=== PATIENT | female | born 1945 | race Caucasian/White ===

== ENCOUNTER 2018-11-03 21:59 | Inpatient (IN) | payer MEDICARE, MEDICAID ==
[~2018-11-03] VITALS: Ht 165.1 cm; Wt 64.0 kg
[2018-11-03] MEDS ORDERED: MORPHINE SULFATE 4 MG/ML CPJ (NOT FOR IM USE) IV STA (22:41)
[2018-11-03] MEDS ORDERED: ONDANSETRON HCL 4MG/2ML INJ IV STA (22:41)
[2018-11-03] MEDS ORDERED: ASPIRIN 81MG TABLET PO ONE (22:45)
[2018-11-03] MEDS: NITROGLYCERIN 0.4MG TABLET SL SL PRN ×3 (23:19→23:35)
[2018-11-03 23:21] LABS: BASOPHILS % 0.7 % (0.0-2.0); EOSINOPHILS % 0.2 % (0.0-5.0); LYMPHOCYTES % 22.9 % (20.0-50.0); MEAN CORPUSCULAR HEMOGLOBIN 28.9 pg (28.0-32.0); MEAN CORPUSCULAR VOLUME 84.4 fL (81.0-99.0); MEAN PLATELET VOLUME 7.4 fl (7.4-10.4); MONOCYTES % 10.6 % (2.0-8.0); NEUTROPHILS % 65.6 % (40.0-76.0); PLATELET 330 x1000/uL (130-400); RED CELL DISTRIBUTION WIDTH 13.5 % (11.6-14.6)
[2018-11-03 23:25] LABS: CHLORIDE 93 mEq/L (98-107)
[2018-11-03 23:28] LABS: D-DIMER < 0.19 mg/L FEU (<0.50); PROTHROMBIN TIME 10.1 sec (9.6-11.0)
[2018-11-03] MEDS ORDERED: MORPHINE SULFATE 4 MG/ML CPJ (NOT FOR IM USE) IV ONE (23:30)
[2018-11-04] VITALS (7 sets, daily range): BP systolic 107–145; BP diastolic 54–65
[2018-11-04] MEDS ORDERED: ASPI-1393 PO (02:41)
[2018-11-04] MEDS ORDERED: LIP40 MT (02:41)
[2018-11-04] MEDS ORDERED: DILT180C93 PO (02:41)
[2018-11-04 07:26] LABS: BASOPHILS % 0.4 % (0.0-2.0); HEMATOCRIT. 37.7 % (36.0-48.0); HEMOGLOBIN. 12.9 g/dL (12.0-16.0); LYMPHOCYTES % 42.3 % (20.0-50.0); MEAN CORPUSCULAR HEMOGLOBIN 29.1 pg (28.0-32.0); MEAN CORPUSCULAR VOLUME 85.4 fL (81.0-99.0); MEAN PLATELET VOLUME 7.5 fl (7.4-10.4); MONOCYTES % 12.6 % (2.0-8.0); NEUTROPHILS % 43.7 % (40.0-76.0); PLATELET 320 x1000/uL (130-400); RED BLOOD CELL COUNT 4.42 mill/uL (4.2-5.4); RED CELL DISTRIBUTION WIDTH 13.1 % (11.6-14.6)
[2018-11-04 07:58] LABS: LDL CHOLESTEROL 79 mg/dL (5-100)
[2018-11-04 08:01] LABS: HDL CHOLESTEROL 60 mg/dL (40-59)
[2018-11-04] MEDS: ENOXAPARIN 40MG/0.4ML SYR SUBCUT SCH (08:49)
[2018-11-04] MEDS: DILTIAZEM HCL 180MG CAPSULE CD 24HR PO SCH (08:50)
[2018-11-04] MEDS: ASPIRIN 81MG TABLET PO SCH (08:50)
[2018-11-04] MEDS ORDERED: ALPRAZOLAM 0.25 MG TABLET PO PRN (13:45)
[2018-11-04] MEDS: FAMOTIDINE 20MG TABLET PO SCH (16:09)
[2018-11-04] MEDS ORDERED: FAMOTIDINE 20MG TABLET PO SCH (21:00)
[2018-11-05] VITALS (7 sets, daily range): BP systolic 103–161; BP diastolic 46–89
[2018-11-05] MEDS: ACETAMINOPHEN 325MG TABLET PO PRN ×3 (06:27→22:48)
[2018-11-05] MEDS: ASPIRIN 81MG TABLET PO SCH (08:31)
[2018-11-05] MEDS: FAMOTIDINE 20MG TABLET PO SCH (08:31)
[2018-11-05] MEDS: DILTIAZEM HCL 180MG CAPSULE CD 24HR PO SCH (08:31)
[2018-11-05] MEDS: ENOXAPARIN 40MG/0.4ML SYR SUBCUT SCH (08:32)
[2018-11-05] MEDS ORDERED: REGADENOSON 0.4 MG/5 ML IV SCH (14:45)
[2018-11-05] MEDS ORDERED: ATORVASTATIN CALCIUM 20MG TABLET PO SCH (21:00)
[2018-11-06] VITALS: BP 111/51
[2018-11-06 04:18] VITALS: BP 111/50
[2018-11-06 07:34] LABS: BASOPHILS % 0.5 % (0.0-2.0); EOSINOPHILS % 1.2 % (0.0-5.0); HEMATOCRIT. 39.7 % (36.0-48.0); HEMOGLOBIN. 13.7 g/dL (12.0-16.0); LYMPHOCYTES % 40.4 % (20.0-50.0); MEAN CORPUSCULAR HEMOGLOBIN 29.1 pg (28.0-32.0); MEAN CORPUSCULAR VOLUME 84.3 fL (81.0-99.0); MEAN PLATELET VOLUME 7.5 fl (7.4-10.4); NEUTROPHILS % 46.9 % (40.0-76.0); PLATELET 348 x1000/uL (130-400); RED BLOOD CELL COUNT 4.71 mill/uL (4.2-5.4); RED CELL DISTRIBUTION WIDTH 13.4 % (11.6-14.6)
[2018-11-06 08:20] VITALS: BP 98/56
[2018-11-06] MEDS: FAMOTIDINE 20MG TABLET PO SCH (08:25)
[2018-11-06] MEDS: ASPIRIN 81MG TABLET PO SCH (08:25)
[2018-11-06] MEDS: ENOXAPARIN 40MG/0.4ML SYR SUBCUT SCH (08:25)
[2018-11-06] MEDS: DILTIAZEM HCL 180MG CAPSULE CD 24HR PO SCH (08:26)
[2018-11-06] MEDS ORDERED: REGADENOSON 0.4 MG/5 ML IV ONE (09:44)
[2018-11-06 09:47] LABS: CHLORIDE 94 mEq/L (98-107)
[2018-11-06] MEDS ORDERED: SODIUM CHLORIDE 0.9% 1,000 ML IV SCH (11:15)
[2018-11-06 12:00] VITALS: BP 143/65
[2018-11-06 13:15] LABS: T4 FREE 1.09 ng/dL (0.76-1.46)
[2018-11-06 16:00] VITALS: BP 137/64
[2018-11-06 16:47] VITALS: BP 137/64
[2018-11-06 19:10] LABS: CLARITY URINE CLEAR (CLEAR); COLOR URINE YELLOW (YELLOW); KETONES URINE NEGATIVE (NEGATIVE); LEUKOCYTE ESTERASE URINE TRACE (NEGATIVE); NITRITE URINE NEGATIVE (NEGATIVE); OCCULT BLOOD URINE TRACE (NEGATIVE); PROTEIN URINE NEGATIVE (NEGATIVE); SPECIFIC GRAVITY URINE 1.005 (1.005-1.030); UROBILINOGEN URINE 0.2 E.U./dL (0.2-1.0)
[2018-11-06 19:26] LABS: *AMPHETAMINES SCREEN URINE NEGATIVE (NEGATIVE); *BARBITURATES SCREEN URINE NEGATIVE (NEGATIVE); *BENZODIAZEPINES SCREEN URINE NEGATIVE (NEGATIVE); *COCAINE SCREEN URINE NEGATIVE (NEGATIVE); METHADONE URINE SCREEN NEGATIVE (NEGATIVE); OPIATES URINE SCREEN NEGATIVE (NEGATIVE); PHENCYCLIDINE URINE SCREEN NEGATIVE (NEGATIVE)
[2018-11-06 19:27] LABS: CANNABINOID URINE SCREEN NEGATIVE (NEGATIVE)
== END 2018-11-06 19:15 | disposition home or self-care (01) | DRG 392 ==
LOC: ER 22:00 → 5WST 11-04 00:16 → EDBEDREQTM 11-04 00:19 → EDBEDREQ 11-04 00:19 → ENRESERV 11-04 00:40
PROVIDERS: ADMIT Internal Medicine; ATTEND Internal Medicine
DX: K21.9 Gastro-esophageal reflux disease without esophagitis (principal); E87.1 Hypo-osmolality and hyponatremia; F41.9 Anxiety disorder, unspecified; E87.8 Other disorders of electrolyte and fluid balance, not elsewhere classified; I10 Essential (primary) hypertension; E03.9 Hypothyroidism, unspecified; E78.00 Pure hypercholesterolemia, unspecified; E78.5 Hyperlipidemia, unspecified; Z79.899 Other long term (current) drug therapy; Z91.81 History of falling; Z88.0 Allergy status to penicillin; Z79.82 Long term (current) use of aspirin
CPT/HCPCS: 36415; 71045; 78452; 80048; 80061; 80305; 83735; 83880; 84439; 84443; 84481; 84484; 85379; 93005; 93017; 93306; 96374; 96375; 96376; 99285; A9500; J1650; J2270; J2405; J2785; J7030; J7050